=== PATIENT | male | born 1970 | race Two or more races ===

== ENCOUNTER 2018-10-12 22:00 | Inpatient (IN) | payer MEDICAID ==
[~2018-10-12] VITALS: Ht 157.5 cm; Wt 76.6 kg
[2018-10-13 02:43] LABS: Basophils # (auto) 0.1 uL; Basophils % (auto) 0.5 % (0.0-2.0); Eosinophils # (auto) 0 uL; Eosinophils % (auto) 0.1 % (0.0-7.0); Hematocrit 42.7 % (41.0-53.0); Hemoglobin 15.2 g/dL (13.5-17.5); Lymphocytes # (auto) 1.4 uL; Lymphocytes % (auto) 13.6 % (10.0-50.0); Mean Corpuscular Hemoglobin 30.4 pg (28.0-32.0); Mean Corpuscular Hgb Conc. 35.5 g/dL (32.0-36.0); Mean Corpuscular Volume 85.6 fL (80.0-100.0); Monocytes # (auto) 0.9 uL; Monocytes % (auto) 8.4 % (0.0-12.0); Neutrophils # (auto) 8.1 uL; Neutrophils % (auto) 77.4 % (37.0-80.0); Nucleated Red Blood Cells % 0.1 %; Platelet Count (auto) 216 10^3/uL (140-450); Red Blood Cells 4.99 10^6/uL (4.5-5.90); Red Cell Distribution Width 12.6 % (11.8-14.3); White Blood Cell 10.5 10^3/uL (4.4-10.8)
[2018-10-13 02:46] LABS: Urine Bacteria NONE SEEN /hpf (None Seen); Urine Blood Negative /uL (Negative); Urine Specific Gravity 1.017 (1.001-1.035); Urine WBC <1 /hpf (0 - 3)
[2018-10-13 02:57] LABS: Potassium 3.7 mmol/L (3.5-5.1)
[2018-10-13 03:01] LABS: Albumin 3.5 g/dL (3.4-5.0); BUN/Creatinine Ratio 10.9; Calcium 8.9 mg/dL (8.5-10.1)
[2018-10-13 03:20] LABS: Bilirubin, Total 0.7 mg/dL (0.2-1.0); Total Protein 7.9 g/dL (6.4-8.2)
[2018-10-13] MEDS ORDERED: SODIUM CHLORIDE 0.9% 1,000 ML IV ONE ×2 (07:45→11:30)
[2018-10-13] MEDS ORDERED: guaiFENesin-DM 100/10mg/5ml SYR PO ONE (07:45)
[2018-10-13] MEDS ORDERED: LEVOFLOXACIN 750MG 150 ML IV ONE (07:45)
[2018-10-13] MEDS ORDERED: ACETAMINOPHEN 500 MG TAB PO ONE (07:45)
[2018-10-13] MEDS ORDERED: DEXTROSE (50%) 50ML SYRG IV PRN ×2 (10:00→11:30)
[2018-10-13] MEDS ORDERED: NITROGLYCERIN 0.4 MG SL TAB SL PRN (10:00)
[2018-10-13] MEDS ORDERED: ONDANSETRON HCL 4 MG/2 ML VIAL IV PRN (10:00)
[2018-10-13] MEDS ORDERED: MORPHINE SULF INJ 2 MG/ML SYRINGE 1ML IV PRN (10:00)
[2018-10-13] MEDS ORDERED: ACETAMINOPHEN 500 MG TAB PO PRN (10:00)
[2018-10-13] MEDS ORDERED: HYDROcodone-ACET 5/325MG TAB PO PRN (10:00)
[2018-10-13] MEDS: methylPREDNISolone SOD SUCC 40 MG/ML VL IV SCH ×2 (10:34→21:23)
[2018-10-13] MEDS: cefTRIAXone 1GM/50ML D5W 50 ML IV SCH (10:35)
[2018-10-13] MEDS: FAMOTIDINE 20 MG TAB PO SCH (10:35)
[2018-10-13] MEDS: AZITHROMYCIN 500MG/ 250ML 250 ML IV SCH (10:43)
[2018-10-13] MEDS ORDERED: InsuLIN REG 1unit/0.01ml Soln (100units/ml) SC SCH (11:30)
[2018-10-13] MEDS ORDERED: ACCU-CHEK COMFORT CURVE STRIP VI SCH (11:30)
[2018-10-13] MEDS: InsuLIN REG 1unit/0.01ml Soln (100units/ml) SC SCH ×3 (11:35→20:21)
[2018-10-13] MEDS: ACCU-CHEK COMFORT CURVE STRIP VI SCH ×4 (11:35→23:55)
[2018-10-13] MEDS: ALBUTEROL SULF 2.5 MG/0.5ML(0.5%) NEB SOLN NEB SCH ×2 (11:43→19:18)
[2018-10-13] MEDS: IPRATROPIUM BROM 0.5 MG/2.5ML INH SOL NEB SCH ×2 (11:44→19:18)
[2018-10-13 12:10] VITALS: BP 163/94
--- NOTE | 2018-10-13 12:36 | NUR ---
MS admit from [facility] admitted to tele/MS after SBAR received. Patient oriented to Kaylah taylor RN, unit, room, bed, and unit policies regarding patient care and visiting hours. Patient weighed by bedscale and encouraged to call if they need something. All questions and concerns addressed, patient verbalized understanding.
[2018-10-13 12:40] VITALS: BP 156/94
[2018-10-13] MEDS ORDERED: ATOR10TA52 PO (12:52)
[2018-10-13] MEDS ORDERED: METF-370 PO (12:52)
[2018-10-13] MEDS ORDERED: GLIP10TA9 PO (12:52)
[2018-10-13] MEDS ORDERED: METO25TA62 PO (12:52)
[2018-10-13] MEDS ORDERED: LISI10TA6 PO (12:52)
[2018-10-13] MEDS ORDERED: AMLO5TAB15 PO (12:52)
--- NOTE | 2018-10-13 12:53 | NUR ---
MED REC COMPLETE ALL HOME MEDS SENT HOME WITH FAMILY
[2018-10-13] MEDS: MORPHINE SULF INJ 2 MG/ML SYRINGE 1ML IV PRN ×2 (15:01→20:22)
--- NOTE | 2018-10-13 16:35 | NUR ---
[employer] MODEL HOSPITALIST PAGED
--- NOTE | 2018-10-13 16:40 | NUR ---
HOSPITALIST RETURNED CALL DR RAO UPDATED ON CURRENT VITAL SIGNS AND STATUS. RECEIVED ORDERS. REREAD ORDERS BACK TO MD. WILL PROCEED.
[2018-10-13] MEDS ORDERED: cloNIDine HCL 0.1 MG TAB PO PRN (16:45)
[2018-10-13 17:00] VITALS: BP 155/85
--- NOTE | 2018-10-13 17:00 | NUR ---
Cooling measures Current temp 101.8 Initiated cooling measures: cooled room, removed heavy blankets and provided ice packs for under arms. Patient is asymptomatic. Reports feeling "great" and denies feeling hot.
--- NOTE | 2018-10-13 17:50 | NUR ---
Sputum sample sent
--- NOTE | 2018-10-13 18:07 | NUR ---
Urine sample sent
--- NOTE | 2018-10-13 18:27 | NUR ---
Reassessed Temp Current temp 101.0
--- NOTE | 2018-10-13 19:30 | NUR ---
TEMP REASSESSMENT 99.3T COOLING MEASURES IN PLACE. WILL CONTINUE TO MONITOR.
[2018-10-13 20:00] VITALS: BP 157/91
[2018-10-13 22:00] VITALS: BP 157/91
--- NOTE | 2018-10-14 | NUR ---
TEMP REASSESSMENT 99.1 T, PATIENT RESTING IN BED COMFORTABLY, DENIES ANY PAIN OR DISCOMFORT. WILL CONTINUE TO ROUND Q1H AND PRN.
[2018-10-14] MEDS: InsuLIN REG 1unit/0.01ml Soln (100units/ml) SC SCH ×5 (00:08→17:00)
[2018-10-14] MEDS: ACCU-CHEK COMFORT CURVE STRIP VI SCH ×4 (04:11→17:00)
[2018-10-14 05:02] VITALS: BP 157/96
[2018-10-14] MEDS: IPRATROPIUM BROM 0.5 MG/2.5ML INH SOL NEB SCH ×2 (06:45→13:20)
[2018-10-14] MEDS: ALBUTEROL SULF 2.5 MG/0.5ML(0.5%) NEB SOLN NEB SCH ×2 (06:45→13:20)
[2018-10-14 06:47] LABS: Basophils # (auto) 0 uL; Basophils % (auto) 0.3 % (0.0-2.0); Eosinophils # (auto) 0 uL; Hematocrit 40.5 % (41.0-53.0); Hemoglobin 13.8 g/dL (13.5-17.5); Lymphocytes # (auto) 0.8 uL; Lymphocytes % (auto) 7.3 % (10.0-50.0); Mean Corpuscular Volume 85.2 fL (80.0-100.0); Monocytes # (auto) 0.5 uL; Neutrophils # (auto) 10.1 uL; Neutrophils % (auto) 88.4 % (37.0-80.0); Platelet Count (auto) 257 10^3/uL (140-450); Red Blood Cells 4.75 10^6/uL (4.5-5.90); Red Cell Distribution Width 12.4 % (11.8-14.3); White Blood Cell 11.4 10^3/uL (4.4-10.8)
--- NOTE | 2018-10-14 06:55 | NUR ---
ROUNDS PATIENT RESTING IN BED COMFORTABLY, WITH EVEN AND UNLABORED RESPIRATIONS OF 18BPM, NO S/S OF PAIN OR DISTRESS. BED AT ITS LOWEST POSITION, CALL LIGHT WITHIN REACH.
[2018-10-14 07:05] LABS: BUN/Creatinine Ratio 16.7; Calcium 8.3 mg/dL (8.5-10.1); Potassium 3.6 mmol/L (3.5-5.1)
[2018-10-14 08:00] VITALS: BP 139/71
[2018-10-14] MEDS: cefTRIAXone 1GM/50ML D5W 50 ML IV SCH (08:25)
[2018-10-14] MEDS: FAMOTIDINE 20 MG TAB PO SCH (09:39)
[2018-10-14] MEDS: AZITHROMYCIN 500MG/ 250ML 250 ML IV SCH (09:40)
[2018-10-14] MEDS: methylPREDNISolone SOD SUCC 40 MG/ML VL IV SCH (09:40)
[2018-10-14 12:00] VITALS: BP 161/82
[2018-10-14] MEDS ORDERED: LEVO750T2 PO (12:17)
[2018-10-14 13:43] VITALS: BP 158/92
--- NOTE | 2018-10-14 15:50 | NUR ---
PATIENT MADE AWARE THAT DISCHARGE PAPERS IS READY, PER PATIENT WILL LEAVE LATER TODAY BECAUSE TIMBER [employer] OPERATOR RIDE WILL BE AROUND 6 PM.
[2018-10-14 17:00] VITALS: BP 167/95
--- NOTE | 2018-10-14 18:18 | NUR ---
Discharge instructions given as ordered. Encourage to follow up with PMD as instructed. All questions and concerns addressed. Patient verbalized understanding. Medication reconciliation form completed and copy given to patient. IV removed with catheter intact, pressure dressing applied. Patient left unit, refused staff assistance, with all personal belongings. No distress noted at time of departure.
== END 2018-10-14 17:00 | disposition home or self-care (01) | DRG 720 ==
LOC: ER 22:00 → OVERFLOW 22:01 → WEST WING 10-13 12:36
PROVIDERS: ADMIT Nurse Practitioner Acute Care; ATTEND Internal Medicine Nephrology
DX: A41.9 Sepsis, unspecified organism (principal); J13 Pneumonia due to Streptococcus pneumoniae; E11.65 Type 2 diabetes mellitus with hyperglycemia; Z79.84 Long term (current) use of oral hypoglycemic drugs; E86.0 Dehydration; E66.9 Obesity, unspecified; I10 Essential (primary) hypertension; E78.5 Hyperlipidemia, unspecified; Z90.49 Acquired absence of other specified parts of digestive tract; Z68.30 Body mass index [BMI] 30.0-30.9, adult
CPT/HCPCS: 36415; 71045; 71046; 80048; 80053; 81001; 82962; 83036; 83605; 85025; 87040; 87086; 94640; 96361; 96365; 96375; G0378; J0696; J1815; J1956